=== PATIENT | female | born 1960 | race Two or more races ===

== ENCOUNTER 2021-12-24 09:28 | Inpatient (IN) | payer MEDICAID, OTHER ==
[~2021-12-24] VITALS: Ht 152.4 cm; Wt 87.0 kg
[2021-12-24 10:50] LABS: Urine Bacteria FEW /hpf (None Seen); Urine Blood 1+ /uL (Negative); Urine Specific Gravity 1.012 (1.001-1.035); Urine WBC 53 /hpf (0 - 5)
[2021-12-24 11:06] LABS: Basophils # (auto) 0 10 ^3/uL (0-0.2); Basophils % (auto) 0.3 % (0.0-2.0); Eosinophils # (auto) 0 10 ^3/uL (0-0.8); Eosinophils % (auto) 0.1 % (0.0-7.0); Hematocrit 44.5 % (36.0-46.0); Hemoglobin 14.7 g/dL (12.2-16.2); Lymphocytes # (auto) 1.2 10 ^3/uL (0.4-5.4); Lymphocytes % (auto) 11.9 % (10.0-50.0); Mean Corpuscular Volume 93.9 fL (80.0-100.0); Monocytes % (auto) 9.6 % (0.0-12.0); Neutrophils # (auto) 8.2 10 ^3/uL (1.6-8.6); Neutrophils % (auto) 78.1 % (37.0-80.0); Red Blood Cells 4.73 10^6/uL (4.0-5.20); Red Cell Distribution Width 13.6 % (11.8-14.3); White Blood Cell 10.5 10^3/uL (4.4-10.8)
[2021-12-24 11:08] LABS: Albumin 3.7 g/dL (3.4-5.0); Calcium 9.2 mg/dL (8.5-10.1); Potassium 3.9 mmol/L (3.5-5.1)
[2021-12-24 11:11] LABS: BUN/Creatinine Ratio 13.9; Total Protein 7.2 g/dL (6.4-8.2)
[2021-12-24] MEDS ORDERED: IOHEXOL 300 MG/ML 100ML BOTTLE IJ ONE (12:13)
[2021-12-24] MEDS ORDERED: cefTRIAXone 1GM/50ML D5W 50 ML IV ONE (14:45)
[2021-12-24] MEDS ORDERED: metroNIDAZOLE 500MG/100ML 100 ML IV ONE (14:45)
[2021-12-24] MEDS: metroNIDAZOLE 500MG/100ML 100 ML IV SCH (16:45)
[2021-12-24] MEDS ORDERED: DEXTROSE (50%) 50ML SYRG IV PRN (16:45)
[2021-12-24] MEDS ORDERED: MORPHINE SULFATE INJ 2 MG/ml SYRG IV PRN (16:45)
[2021-12-24] MEDS ORDERED: ACETAMINOPHEN 325 MG TAB PO PRN (16:45)
[2021-12-24] MEDS ORDERED: HYDROcodone-ACET 5/325MG TAB PO PRN (16:45)
[2021-12-24] MEDS: SODIUM CHLORIDE 0.9% 1,000 ML IV SCH (17:10)
[2021-12-24] MEDS: ACCU-CHEK COMFORT CURVE STRIP VI SCH ×2 (17:18→21:22)
[2021-12-24] MEDS: InsuLIN REG 1unit/0.01ml Soln (100units/ml) SC SCH ×2 (17:19→21:22)
[2021-12-24 17:53] VITALS: BP 137/79
[2021-12-24 20:00] VITALS: BP 122/71
[2021-12-24 22:00] VITALS: BP 122/71
[2021-12-24] MEDS ORDERED: ATOR20TA PO (23:03)
[2021-12-24] MEDS ORDERED: GLIP5TAB12 PO (23:03)
[2021-12-24] MEDS ORDERED: ASPI-543 PO (23:03)
[2021-12-24] MEDS ORDERED: LOSA25TA38 PO (23:03)
[2021-12-24] MEDS ORDERED: METF-371 PO (23:03)
[2021-12-25] MEDS: metroNIDAZOLE 500MG/100ML 100 ML IV SCH ×3 (01:00→16:45)
[2021-12-25 05:00] VITALS: BP 130/76
[2021-12-25 05:46] LABS: Basophils # (auto) 0 10 ^3/uL (0-0.2); Basophils % (auto) 0.4 % (0.0-2.0); Eosinophils # (auto) 0.1 10 ^3/uL (0-0.8); Eosinophils % (auto) 0.7 % (0.0-7.0); Hematocrit 38.8 % (36.0-46.0); Hemoglobin 12.9 g/dL (12.2-16.2); Lymphocytes # (auto) 1.5 10 ^3/uL (0.4-5.4); Lymphocytes % (auto) 17.9 % (10.0-50.0); Mean Corpuscular Hemoglobin 31.4 pg (28.0-32.0); Mean Corpuscular Hgb Conc. 33.3 g/dL (32.0-36.0); Mean Corpuscular Volume 94.2 fL (80.0-100.0); Monocytes # (auto) 0.9 10 ^3/uL (0-1.3); Monocytes % (auto) 10.7 % (0.0-12.0); Neutrophils # (auto) 5.9 10 ^3/uL (1.6-8.6); Neutrophils % (auto) 70.3 % (37.0-80.0); Red Blood Cells 4.12 10^6/uL (4.0-5.20); Red Cell Distribution Width 13.3 % (11.8-14.3); White Blood Cell 8.3 10^3/uL (4.4-10.8)
[2021-12-25 05:56] LABS: Potassium 3.9 mmol/L (3.5-5.1)
[2021-12-25 06:13] LABS: Albumin 3.2 g/dL (3.4-5.0); BUN/Creatinine Ratio 11.8; Calcium 8.9 mg/dL (8.5-10.1); Total Protein 6.5 g/dL (6.4-8.2)
[2021-12-25] MEDS: ACCU-CHEK COMFORT CURVE STRIP VI SCH ×4 (06:24→22:49)
[2021-12-25] MEDS: InsuLIN REG 1unit/0.01ml Soln (100units/ml) SC SCH ×4 (06:24→22:49)
[2021-12-25 08:00] VITALS: BP 128/74
[2021-12-25] MEDS: SODIUM CHLORIDE 0.9% 1,000 ML IV SCH (08:51)
[2021-12-25] MEDS: ENOXAPARIN SOD 40 MG/0.4 ML SYRINGE SC SCH (08:52)
[2021-12-25] MEDS: CEFTRIAXONE SODIUM 2 GM in D5W 5% 50 ML IV SCH (08:52)
[2021-12-25 13:00] VITALS: BP 122/65
[2021-12-25] MEDS ORDERED: ONDANSETRON HCL 4 MG/2 ML VIAL IV PRN (14:45)
[2021-12-25 22:00] VITALS: BP 145/71
[2021-12-26] MEDS: metroNIDAZOLE 500MG/100ML 100 ML IV SCH ×2 (00:44→10:16)
[2021-12-26] MEDS: SODIUM CHLORIDE 0.9% 1,000 ML IV SCH (02:05)
[2021-12-26 05:00] VITALS: BP 134/68
[2021-12-26] MEDS: ACCU-CHEK COMFORT CURVE STRIP VI SCH ×2 (06:40→11:44)
[2021-12-26] MEDS: InsuLIN REG 1unit/0.01ml Soln (100units/ml) SC SCH ×2 (06:41→11:45)
[2021-12-26 09:07] VITALS: BP 146/68
[2021-12-26] MEDS: ENOXAPARIN SOD 40 MG/0.4 ML SYRINGE SC SCH (10:17)
[2021-12-26] MEDS: CEFTRIAXONE SODIUM 2 GM in D5W 5% 50 ML IV SCH (11:44)
[2021-12-26] MEDS ORDERED: METR500T PO (12:29)
[2021-12-26] MEDS ORDERED: LEVO-28 PO (12:29)
[2021-12-26 12:48] VITALS: BP 154/90
== END 2021-12-26 13:37 | disposition home or self-care (01) | DRG 244 ==
LOC: ER 09:28 → OVERFLOW 16:41 → CENTRAL 17:33
PROVIDERS: ADMIT Internal Medicine; ATTEND Hospitalist
DX: K57.32 Diverticulitis of large intestine without perforation or abscess without bleeding (principal); E11.9 Type 2 diabetes mellitus without complications; E78.5 Hyperlipidemia, unspecified; I10 Essential (primary) hypertension; Z20.822 Contact with and (suspected) exposure to COVID-19; N39.0 Urinary tract infection, site not specified; Z90.49 Acquired absence of other specified parts of digestive tract; Z79.84 Long term (current) use of oral hypoglycemic drugs
CPT/HCPCS: 36415; 74177; 80053; 81001; 82962; 83036; 85025; 87040; 93005; 96365; 96368; G0378; J0696; J1815; J3490; J7060

== ENCOUNTER 2023-01-31 10:09 | Inpatient (IN) | payer MEDICAID ==
[~2023-01-31] VITALS: Ht 152.4 cm; Wt 97.9 kg
[~2023-01-31 10:09] MED LIST: ASPI-543 PO; ATOR20TA PO; GLIP5TAB12 PO; LEVO500T91 PO; LOSA25TA15 PO; METF-371 PO; METR500T PO
[2023-01-31 10:49] LABS: Basophils # (auto) 0 10 ^3/uL (0-0.2); Basophils % (auto) 0.5 % (0.0-2.0); Eosinophils # (auto) 0.1 10 ^3/uL (0-0.8); Eosinophils % (auto) 1.6 % (0.0-7.0); Hematocrit 48.9 % (36.0-46.0); Hemoglobin 16.1 g/dL (12.2-16.2); Lymphocytes # (auto) 1.2 10 ^3/uL (0.4-5.4); Lymphocytes % (auto) 29.8 % (10.0-50.0); Mean Corpuscular Hemoglobin 30.8 pg (28.0-32.0); Mean Corpuscular Hgb Conc. 32.9 g/dL (32.0-36.0); Mean Corpuscular Volume 93.6 fL (80.0-100.0); Monocytes # (auto) 0.4 10 ^3/uL (0-1.3); Monocytes % (auto) 10.9 % (0.0-12.0); Neutrophils # (auto) 2.3 10 ^3/uL (1.6-8.6); Neutrophils % (auto) 57.2 % (37.0-80.0); Nucleated Red Blood Cells % 0.1 %; Red Blood Cells 5.22 10^6/uL (4.0-5.20); Red Cell Distribution Width 13.4 % (11.8-14.3)
[2023-01-31 11:02] LABS: Urine Bacteria NONE SEEN /hpf (None Seen); Urine Blood Negative /uL (Negative); Urine Clarity Clear (Clear); Urine Protein, UAD Negative (Negative); Urine Specific Gravity 1.031 (1.001-1.035); Urine Urobilinogen Normal (Negative); Urine WBC 2 /hpf (0 - 5)
[2023-01-31 11:03] LABS: Urine Color Straw (Yellow)
[2023-01-31 11:23] LABS: Alanine Aminotransferase 39 U/L (7-40); Albumin 4.3 g/dL (3.2-4.8); Alkaline Phosphatase 70 U/L (46-116); Anion Gap 7 (5-15); Aspartate Aminotransferase 31 U/L (13-40); BUN/Creatinine Ratio 11.4 (10.0-20.0); Bilirubin, Total 0.8 mg/dL (0.2-1.0); Blood Urea Nitrogen 10 mg/dL (9-23); Calcium 9.3 mg/dL (8.5-10.1); Carbon Dioxide 26 mmol/L (20-30); Chloride 103 mmol/L (98-107); Glucose 276 mg/dL (74-106); Sodium 136 mmol/L (136-145); Total Protein 6.7 g/dL (5.7-8.2)
[2023-01-31] MEDS ORDERED: SODIUM CHLORIDE 0.9% 500 ML IV ONE (12:45)
[2023-01-31] MEDS ORDERED: MORPHINE SULFATE 4 MG/ML SYR/VIAL IV ONE (12:45)
[2023-01-31] MEDS ORDERED: metroNIDAZOLE 500MG/100ML 100 ML IV ONE (12:45)
[2023-01-31] MEDS ORDERED: ONDANSETRON HCL 4 MG/2 ML VIAL IV ONE (12:45)
[2023-01-31] MEDS ORDERED: PANTOPRAZOLE 40 MG/10 ML VIAL INJ IV ONE (16:00)
[2023-01-31 16:11] LABS: Lipase 49 U/L (12-53)
[2023-01-31] MEDS ORDERED: ONDANSETRON HCL 4 MG/2 ML VIAL IV PRN (16:15)
[2023-01-31] MEDS ORDERED: MORPHINE SULFATE INJ 2 MG/ml SYRG IV PRN (16:15)
[2023-01-31] MEDS ORDERED: DEXTROSE (50%) 50ML SYRG IV PRN (16:15)
[2023-01-31] MEDS ORDERED: DOCUSATE SOD 100 MG CAP PO PRN (16:15)
[2023-01-31] MEDS ORDERED: ACETAMINOPHEN 325 MG TAB PO PRN (16:15)
[2023-01-31] MEDS ORDERED: HYDROcodone-ACET 5/325MG TAB PO PRN (16:15)
[2023-01-31] MEDS: SODIUM CHLORIDE 0.9% 1,000 ML IV SCH ×2 (17:36→23:43)
[2023-01-31] MEDS: ACCU-CHEK COMFORT CURVE STRIP VI SCH ×2 (17:44→23:37)
[2023-01-31] MEDS: InsuLIN REG 1unit/0.01ml Soln (100units/ml) SC SCH ×2 (17:44→23:37)
[2023-01-31 20:21] VITALS: PULSE 91; RESP 24; O2SAT 97
[2023-01-31] MEDS: ATORVASTATIN 20 MG TAB PO SCH (22:00)
[2023-01-31] MEDS: metroNIDAZOLE 500MG/100ML 100 ML IV SCH (22:00)
[2023-02-01] VITALS (7 sets, daily range): BP systolic 118–142; BP diastolic 58–89; PULSE 61–88; RESP 16–20; TEMP 98–99.2; O2SAT 91–98
[2023-02-01] MEDS: metroNIDAZOLE 500MG/100ML 100 ML IV SCH ×3 (05:39→21:24)
[2023-02-01] MEDS: ACCU-CHEK COMFORT CURVE STRIP VI SCH ×4 (05:43→22:59)
[2023-02-01] MEDS: InsuLIN REG 1unit/0.01ml Soln (100units/ml) SC SCH ×4 (05:53→22:59)
[2023-02-01 06:04] LABS: Basophils # (auto) 0 10 ^3/uL (0-0.2); Basophils % (auto) 0.5 % (0.0-2.0); Eosinophils # (auto) 0 10 ^3/uL (0-0.8); Hematocrit 44.5 % (36.0-46.0); Hemoglobin 14.6 g/dL (12.2-16.2); Lymphocytes # (auto) 0.9 10 ^3/uL (0.4-5.4); Lymphocytes % (auto) 20.8 % (10.0-50.0); Mean Corpuscular Hemoglobin 30.8 pg (28.0-32.0); Mean Corpuscular Hgb Conc. 32.9 g/dL (32.0-36.0); Mean Corpuscular Volume 93.5 fL (80.0-100.0); Monocytes # (auto) 0.5 10 ^3/uL (0-1.3); Monocytes % (auto) 12.1 % (0.0-12.0); Neutrophils # (auto) 2.9 10 ^3/uL (1.6-8.6); Neutrophils % (auto) 65.6 % (37.0-80.0); Red Blood Cells 4.76 10^6/uL (4.0-5.20); Red Cell Distribution Width 13.6 % (11.8-14.3); White Blood Cell 4.4 10^3/uL (4.4-10.8)
[2023-02-01 06:28] LABS: Alanine Aminotransferase 148 U/L (7-40); Albumin 3.8 g/dL (3.2-4.8); Alkaline Phosphatase 174 U/L (46-116); Anion Gap 3 (5-15); Aspartate Aminotransferase 179 U/L (13-40); BUN/Creatinine Ratio 10.3 (10.0-20.0); Blood Urea Nitrogen 9 mg/dL (9-23); Calcium 8.7 mg/dL (8.7-10.4); Carbon Dioxide 28 mmol/L (20-30); Chloride 108 mmol/L (98-107); Glucose 130 mg/dL (74-106); Potassium 4.6 mmol/L (3.5-5.1); Sodium 139 mmol/L (136-145)
[2023-02-01 06:29] LABS: Bilirubin, Total 0.7 mg/dL (0.2-1.0); Total Protein 5.9 g/dL (5.7-8.2)
[2023-02-01] MEDS: cefTRIAXone 1GM/50ML D5W 50 ML IV SCH (10:11)
[2023-02-01] MEDS: PANTOPRAZOLE 40 MG/10 ML VIAL INJ IV SCH (10:12)
[2023-02-01] MEDS: LOSARTAN POTASSIUM 50 MG TAB PO SCH (10:13)
[2023-02-01] MEDS: SODIUM CHLORIDE 0.9% 1,000 ML IV SCH ×2 (10:13→16:49)
[2023-02-01] MEDS ORDERED: OMEP-448 PO (16:20)
[2023-02-01] MEDS ORDERED: ATOR20TA50 PO (16:20)
[2023-02-01] MEDS ORDERED: EMPA1TAB3 PO (16:20)
[2023-02-01] MEDS ORDERED: GLIP5TAB12 PO (16:20)
[2023-02-01] MEDS ORDERED: ASPI-543 PO (16:20)
[2023-02-01] MEDS ORDERED: LOSA100T58 PO (16:20)
[2023-02-01] MEDS: ATORVASTATIN 20 MG TAB PO SCH (21:24)
[2023-02-02] VITALS (7 sets, daily range): BP systolic 120–159; BP diastolic 47–72; PULSE 49–109; RESP 16–20; TEMP 97.7–98.7; O2SAT 96–99
[2023-02-02] MEDS: metroNIDAZOLE 500MG/100ML 100 ML IV SCH ×3 (05:11→21:39)
[2023-02-02] MEDS: ACCU-CHEK COMFORT CURVE STRIP VI SCH ×4 (05:11→23:58)
[2023-02-02] MEDS: SODIUM CHLORIDE 0.9% 1,000 ML IV SCH (05:11)
[2023-02-02] MEDS: InsuLIN REG 1unit/0.01ml Soln (100units/ml) SC SCH ×3 (06:00→17:32)
[2023-02-02 07:02] LABS: Basophils # (auto) 0 10 ^3/uL (0-0.2); Basophils % (auto) 0.6 % (0.0-2.0); Eosinophils # (auto) 0.1 10 ^3/uL (0-0.8); Eosinophils % (auto) 2.1 % (0.0-7.0); Hematocrit 43.9 % (36.0-46.0); Hemoglobin 14.7 g/dL (12.2-16.2); Lymphocytes # (auto) 1.2 10 ^3/uL (0.4-5.4); Lymphocytes % (auto) 35.3 % (10.0-50.0); Mean Corpuscular Hgb Conc. 33.4 g/dL (32.0-36.0); Mean Corpuscular Volume 92.7 fL (80.0-100.0); Monocytes # (auto) 0.5 10 ^3/uL (0-1.3); Monocytes % (auto) 13.5 % (0.0-12.0); Neutrophils # (auto) 1.7 10 ^3/uL (1.6-8.6); Neutrophils % (auto) 48.5 % (37.0-80.0); Nucleated Red Blood Cells % 0.5 %; Red Blood Cells 4.74 10^6/uL (4.0-5.20); Red Cell Distribution Width 13.6 % (11.8-14.3); White Blood Cell 3.5 10^3/uL (4.4-10.8)
[2023-02-02 07:31] LABS: INR 1.09 (0.9-1.15); Prothrombin Time 11.4 sec (9.3-11.8)
[2023-02-02 07:32] LABS: Alanine Aminotransferase 91 U/L (7-40); Albumin 3.8 g/dL (3.2-4.8); Alkaline Phosphatase 134 U/L (46-116); Anion Gap 5 (5-15); Aspartate Aminotransferase 49 U/L (13-40); BUN/Creatinine Ratio 8.5 (10.0-20.0); Blood Urea Nitrogen 6 mg/dL (9-23); Calcium 8.9 mg/dL (8.7-10.4); Carbon Dioxide 27 mmol/L (20-30); Chloride 109 mmol/L (98-107); Glucose 127 mg/dL (74-106); Magnesium 1.8 mg/dL (1.6-2.6); Potassium 4.1 mmol/L (3.5-5.1); Sodium 141 mmol/L (136-145)
[2023-02-02 07:33] LABS: Bilirubin, Total 0.6 mg/dL (0.2-1.0); Total Protein 6.1 g/dL (5.7-8.2)
[2023-02-02 07:35] LABS: Folate (Folic Acid) 17.42 ng/mL (>5.38)
[2023-02-02] MEDS: cefTRIAXone 1GM/50ML D5W 50 ML IV SCH (09:51)
[2023-02-02] MEDS: PANTOPRAZOLE 40 MG/10 ML VIAL INJ IV SCH (09:55)
[2023-02-02] MEDS: LOSARTAN POTASSIUM 50 MG TAB PO SCH (09:56)
[2023-02-02 20:13] LABS: COVID19 ANTIGEN SOFIA FIA NEGATIVE (NEGATIVE); Rapid Influenza A Negative (Negative); Rapid Influenza B Negative (Negative)
[2023-02-02] MEDS: ATORVASTATIN 20 MG TAB PO SCH (21:39)
[2023-02-03] MEDS: InsuLIN REG 1unit/0.01ml Soln (100units/ml) SC SCH ×3 (00:01→12:00)
[2023-02-03 05:00] VITALS: BP 151/55; PULSE 53; RESP 19; TEMP 97.6; O2SAT 93
[2023-02-03] MEDS: metroNIDAZOLE 500MG/100ML 100 ML IV SCH (05:19)
[2023-02-03] MEDS: ACCU-CHEK COMFORT CURVE STRIP VI SCH ×2 (05:19→12:00)
[2023-02-03 08:00] VITALS: PULSE 59; RESP 18
[2023-02-03 08:13] LABS: Basophils # (auto) 0 10 ^3/uL (0-0.2); Basophils % (auto) 0.3 % (0.0-2.0); Eosinophils # (auto) 0.1 10 ^3/uL (0-0.8); Eosinophils % (auto) 2.8 % (0.0-7.0); Hemoglobin 15.1 g/dL (12.2-16.2); Lymphocytes # (auto) 1.5 10 ^3/uL (0.4-5.4); Lymphocytes % (auto) 45.7 % (10.0-50.0); Mean Corpuscular Hemoglobin 31.1 pg (28.0-32.0); Mean Corpuscular Hgb Conc. 33.7 g/dL (32.0-36.0); Mean Corpuscular Volume 92.4 fL (80.0-100.0); Monocytes # (auto) 0.3 10 ^3/uL (0-1.3); Monocytes % (auto) 10.6 % (0.0-12.0); Neutrophils # (auto) 1.3 10 ^3/uL (1.6-8.6); Neutrophils % (auto) 40.6 % (37.0-80.0); Nucleated Red Blood Cells % 1.3 %; Red Blood Cells 4.87 10^6/uL (4.0-5.20); Red Cell Distribution Width 13.1 % (11.8-14.3); White Blood Cell 3.3 10^3/uL (4.4-10.8)
[2023-02-03 08:31] LABS: Alanine Aminotransferase 72 U/L (7-40); Albumin 3.9 g/dL (3.2-4.8); Alkaline Phosphatase 99 U/L (46-116); Anion Gap 6 (5-15); Aspartate Aminotransferase 36 U/L (13-40); BUN/Creatinine Ratio 12.3 (10.0-20.0); Blood Urea Nitrogen 9 mg/dL (9-23); Calcium 9.1 mg/dL (8.5-10.1); Carbon Dioxide 27 mmol/L (20-30); Chloride 108 mmol/L (98-107); Glucose 126 mg/dL (74-106); Potassium 4.1 mmol/L (3.5-5.1); Sodium 141 mmol/L (136-145)
[2023-02-03 08:32] LABS: Bilirubin, Total 0.6 mg/dL (0.2-1.0); Total Protein 6.2 g/dL (5.7-8.2)
[2023-02-03 09:00] VITALS: BP_SYST 129; BP_SYST 148; BP_DIAS 44; BP_DIAS 65; PULSE 46; PULSE 59; RESP 20; TEMP 97.7; TEMP 98.7; O2SAT 96; O2SAT 97
[2023-02-03] MEDS ORDERED: amLODIPine BESYLATE 5 MG TAB PO SCH (10:00)
[2023-02-03] MEDS: LOSARTAN POTASSIUM 50 MG TAB PO SCH (10:00)
[2023-02-03 11:01] LABS: Magnesium 1.8 mg/dL (1.6-2.6)
[2023-02-03] MEDS: PANTOPRAZOLE 40 MG/10 ML VIAL INJ IV SCH (11:05)
[2023-02-03] MEDS: cefTRIAXone 1GM/50ML D5W 50 ML IV SCH (11:05)
[2023-02-03 12:55] VITALS: BP 147/74; PULSE 58; RESP 20; TEMP 97.7; O2SAT 98
[2023-02-03] MEDS ORDERED: metroNIDAZOLE 500 MG TAB PO SCH (14:00)
[2023-02-03] MEDS ORDERED: AML5T PO (14:25)
== END 2023-02-03 18:00 | disposition home or self-care (01) | DRG 244 ==
LOC: ER 10:09 → OVERFLOW 16:08 → WEST WING 02-01 03:35
PROVIDERS: ADMIT Internal Medicine; ATTEND Student in an Organized Health Care Education/Training Program
DX: K57.33 Diverticulitis of large intestine without perforation or abscess with bleeding (principal); D36.9 Benign neoplasm, unspecified site; E11.9 Type 2 diabetes mellitus without complications; I10 Essential (primary) hypertension; R74.01 Elevation of levels of liver transaminase levels; E78.5 Hyperlipidemia, unspecified; Z20.822 Contact with and (suspected) exposure to COVID-19; E66.01 Morbid (severe) obesity due to excess calories; Z82.49 Family history of ischemic heart disease and other diseases of the circulatory system; Z83.3 Family history of diabetes mellitus; Z90.710 Acquired absence of both cervix and uterus; Z90.49 Acquired absence of other specified parts of digestive tract; Z68.41 Body mass index [BMI] 40.0-44.9, adult
CPT/HCPCS: 36415; 74176; 80053; 81001; 82378; 82607; 82746; 82962; 83036; 83605; 83690; 83735; 84443; 84484; 85025; 85610; 87040; 87426; 87804; 93005; 96365; 96375; 96376; C9113; G0378; J0696; J1815; J2405; J3490